=== PATIENT | female | born 1955 | race Caucasian/White ===

== ENCOUNTER → 2016-08-06 | Outpatient (CLI) | payer MEDICARE ==
[~2016-08-06] MED LIST: ALBU6.7H IH; FAMO-119 PO; FLUT1DIS3 IH; HYDR-3754 PO; HYDR-3811 PO; LEVO88TA4 PO; LRT10T PO; MESA250C PO; PRM25T PO; TRM50T PO; [UNRECOGNIZED DRUG - CODE] PO
[2016-08-06 15:02] LABS: MEAN CORPUSCULAR HGB CONC 32.5 g/dL (31.0-37.0); MEAN PLATELET VOLUME 9.9 FL (6.0-9.5); PLATELET COUNT 246 10^3uL (150-450); WHITE BLOOD COUNT 2.07 10^3uL (4.0-11.0)
[2016-08-06 15:09] LABS: MEAN CORPUSCULAR HEMOGLOBIN 32.8 PG (26.0-34.0); MEAN CORPUSCULAR VOLUME 101 FL (80-100)
[2016-08-06 15:20] LABS: ANISOCYTOSIS SLIGHT; BAND NEUTROPHILS % 3 % (0-6); EOSINOPHILS % 0 % (0-4); LYMPHOCYTES # 0.4 #; MONOCYTES # 0.2 #; MONOCYTES % 9 % (3-11); RBC MORPH SEE REFERENCE (NORMAL); SEGMENTED NEUTROPHILS % 70 % (51-67); TOTAL CELLS COUNTED 100
== END ==
LOC: LAB 14:45
PROVIDERS: ATTEND Internal Medicine Gastroenterology
DX: D64.9 Anemia, unspecified (principal)
CPT/HCPCS: 36415; 85025

== ENCOUNTER 2016-11-05 11:25 | Emergency (ER) | payer MEDICARE ==
[~2016-11-05] VITALS: Ht 160 cm; Wt 51.2 kg
--- OUTSIDE RECORDS SUMMARY | 2016-11-05 11:29 | XMS REPORT | Summary of Care ---
Author Author Emory Craft M.D. Organization Unknown Address Unknown Phone Unavailable Care Team Providers Care Diesel Motor Mechanic Name Role Phone Emory Craft M.D. 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, E04.1) Status: Active Glossitis (529.0, K14.0) Status: Active Solitary thyroid nodule (241.0, E04.1) Status: Active Esophageal reflux (530.81, K21.9) Status: Active Dysphagia (787.20, R13.10) Status: Active Current Every Day Smoker Status: Active COPD, moderate (496, J44.9) Status: Active Anemia (285.9, D64.9) Status: Active Arthritis (716.90, M19.90) Status: Active Asthma (493.90, J45.909) Status: Active GERD with stricture (530.81, K21.9) Status: Active Arthritis or polyarthritis, 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, 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 Thrush (112.0, B37.0) Status: Active ADHD (attention deficit hyperactivity disorder) (314.01, F90.9) Status: Active Back pain (724.5, M54.9) Status: Active COPD (chronic obstructive pulmonary disease) (496, J44.9) Status: Active Cyst of left breast (610.0, N60.02) Status: Active Cyst of right breast (610.0, N60.01) Status: Active Environmental allergies (V15.09, Z91.09) Status: Active Perirectal skin irritation (569.49, K62.89) Status: Active Casey's 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.2, E06.3) Status: Active Left shoulder pain (719.41, M25.512) Status: Active COPD exacerbation (491.21, J44.1) Status: Active Crohn's disease (555.9, K50.90) Status: Active Chest cold (519.8, J22) Status: Active URI (upper respiratory infection) (465.9, J06.9) Status: Active Medications Name Dates Details Pepcid AC 10 MG Oral Tablet Refills: 0 Start 09-Dec-2012 Active TraMADol HCl - 50 MG Oral Tablet TAKE 1 TO 2 TABLETS BY MOUTH 4 TIMES DAILY NEEDED Quantity: 240 Refills: 3 Luana M.D., Emory Start 09-Dec-2012 Active Advair Diskus 100-50 MCG/DOSE Inhalation Aerosol Powder Breath Activated Refills: 0 Start 09-Dec-2012 Active Nystatin 252763 UNIT/ML Mouth/Throat Suspension SWISH AND SWALLOW 5ML 4 TIMES DAILY. Quantity: 100 Refills: 0 Forrest M.D., Emory Start Active Hydrocodone-Acetaminophen 10-325 MG Oral Tablet TAKE 1 TO 2 TABLETS EVERY 4 TO 6 HOURS NEEDED FOR PAIN. Quantity: 50 Refills: 0 Forrest M.D., Emory Start Active Levothyroxine Sodium 88 MCG Oral Tablet TAKE 1 TABLET DAILY. Quantity: 30 Refills: 11 Forrest M.D., Emory Start 20-Nov-2015 Active Tudorza Pressair 400 MCG/ACT Inhalation Aerosol Powder Breath Activated 1 inhalation bid Quantity: 1 Refills: 5 Forrest M.D., Emory Start 14-Dec-2015 Active Montelukast Sodium 10 MG Oral Tablet TAKE 1 TABLET DAILY DIRECTED. Quantity: 30 Refills: 11 Forrest M.D., Emory Start 14-Dec-2015 Active Albuterol Sulfate (2.5 MG/3ML) 0.083% Inhalation Nebulization Solution USE DIRECTED. Quantity: 0 Refills: 0 Forrest M.D., Emory Start 14-Dec-2015 Admin Requested Levocetirizine Dihydrochloride 5 MG Oral Tablet TAKE 1 TABLET DAILY IN THE EVENING. Quantity: 30 Refills: 11 Forrest M.D., Emory Start Active Albuterol Sulfate (2.5 MG/3ML) 0.083% Inhalation Nebulization Solution USE 1 UNIT DOSE IN NEBULIZER EVERY 4 HOURS NEEDED. Quantity: 1 Refills: 4 Luana M.D., Emory Start Active 3 ML Plas Cont (60 Plas Conts) Ventolin HFA 108 (90 Base) MCG/ACT Inhalation Aerosol Solution INHALE 1 TO 2 PUFFS EVERY 4 TO 6 HOURS NEEDED. Quantity: 18 Refills: 3 Forrest M.D., Emory Start Active ProAir HFA 108 (90 Base) MCG/ACT Inhalation Aerosol Solution INHALE 2 PUFFS EVERY 4 HOURS NEEDED FOR COUGH AND WHEEZE. Quantity: 1 Refills: 6 Luana M.D., Emory Start Active 8.5 GM Inhaler Promethazine HCl - 25 MG Oral Tablet Take 1 tab po q 4 hr PRN Quantity: 20 Refills: 3 Forrest M.D., Emory Start 26-Feb-2016 Active LevoFLOXacin 500 MG Oral Tablet TAKE 1 TABLET DAILY UNTIL FINISHED. Quantity: 10 Refills: 0 Forrest M.D., Emory Start 27-Feb-2016 Active Zinc Oxide 20 % External Ointment USE DIRECTED. Quantity: 60 Refills: 6 Forrest M.D., Emory Start 25-Mar-2016 Active Fluconazole 100 MG Oral Tablet TAKE 2 TABLETS ON DAY 1 THEN TAKE 1 TABLET A DAY FOR 4 DAYS. 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, 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 COPD, moderate (496, J44.9) Status: Active Crohn's disease (555.9, K50.90) Status: Active GERD with stricture (530.81, K21.9) Status: Active Casey's 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.2, E06.3) Status: Active Procedures Procedure Dates Details History of Tonsillectomy History of Gallbladder Surgery History of Appendectomy History of Surgical Excision Of Ectopic Unspecified Location History of Thyroid Surgery Completed: Procedures not documented Immunization Name Dates Details Influenza Lot #: [id number] on: 14-May-2016 Family History Name Dates Details Family history of Cancer Comments: Family History Status: Active Name Dates Details No pertinent family history Status: Active Name Dates Details Family history of Monoallelic deletion of STK11 gene (V84.89, Z15.89) Status: Active Social History Name Dates Details - Status: Name Dates Details Current every day smoker Vital Signs Date Test Result Details 15-Jul-2016 16:31 BP Systolic 124 mm[Hg] Status: Comments: Location: LUE; Position: Sitting BP Diastolic 70 mm[Hg] Status: Comments: Location: LUE; Position: Sitting Temperature 98.8 f Status: Comments: Method: Tympanic Heart Rate 88 /min Status: Comments: Location: ; Weight 111 lb Status: Physical Findings 96 Status: Comments: O2 Saturation Body Mass Index Calculated 19.05 kg/m2 Status: Body Surface Area Calculated 1.52 m2 Status: Results Date Description Value Details 15-Jul-2016 17:24 INFLUENZA A/B ANTIGEN 5320 Comments: *Negative results do not exclude Influenza viral infection and could be confirmed with Influenza molecular assays. Physician order would be required.*Testing performed by [facility], [address] [place] [id number] Phone: Testing performed by [facility], [facility] [address] [place] [id number] *INFLUENZA A/B ANTIGEN Negative Range: Negative Plan of Care Name Dates Details Planned Observations Planned Goals not documented Interventions Provided Medication ChangesAdvair Diskus 250-50 MCG/DOSE Inhalation Aerosol Powder Breath Activated - Renew Instructions Name Dates Details Instructions not documented Encounters Appointment; Emory Craft M.D. Encounter Diagnosis: Problem not documented On 15-Jul-2016 16:30 Appointment; Emory Craft M.D. Encounter Diagnosis: Problem not documented On 19-Jun-2016 10:30 Appointment; Emroy Craft M.D. Encounter Diagnosis: Problem not documented On 14-May-2016 14:45 Appointment; Emory Craft M.D. Encounter Diagnosis: Problem not documented On 22-Apr-2016 10:30 Appointment; Emory Craft M.D. Encounter Diagnosis: Problem not documented On 25-Mar-2016 15:15 Appointment; Emory Craft M.D. Encounter Diagnosis: Problem not documented On 13-Mar-2016 10:00 Appointment; Cameron Craft M.D. Encounter Diagnosis: Problem not documented On 27-Feb-2016 11:30 Appointment; Emory Craft M.D. Encounter Diagnosis: Problem not documented On 08:00 Appointment; Emory Craft M.D. Encounter Diagnosis: Problem not documented On 14-Dec-2015 08:30 Appointment; Emory Craft M.D. Encounter Diagnosis: Problem not documented On 13-Nov-2015 13:30
--- OUTSIDE RECORDS SUMMARY | 2016-11-05 11:29 | XMS REPORT ---
Author Author Genaro Key Organization Unknown Address [address], [place] [id number] Phone Care Team Providers Care Transition Assistant Name Role Phone [facility] [facility] Unavailable Unavailable Reason for Referral No Reason for Referral was given. History of Present Illness No HPI available. 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); (Active) Visit For: Postsurgical Exam (V67.00); (Active) Medication Claritin 10 MG Oral Capsule; Start Date: 12/09/2012 (Active)Pepcid AC 10 MG Oral Tablet; Start Date: 12/09/2012 (Active)TraMADol HCl 50 MG Oral Tablet; Start Date: 12/09/2012 (Active)Advair Diskus 100-50 MCG/DOSE Inhalation Aerosol Powder Breath Activated; Start Date: 12/09/2012 (Active)Proventil HFA 108 (90 Base) MCG/ACT Inhalation Aerosol Solution; Start Date: 12/09/2012 (Active) Nystatin 064079 UNIT/ML Mouth/Throat Suspension; Start Date: 12/31/2012 (Active) Hydrocodone-Acetaminophen 5-325 MG Oral Tablet; Take 1 to 2 po every 4 hours prn pain; Start Date: 01/13/2013 (Active)Hydrocodone-Acetaminophen 7.5-325 MG Oral Tablet; 1-2 PO q 4 hrs prn pain; Start Date: 01/05/2013; End Date: 2012 (Complete) Allergies and Adverse Reactions Sulfa Drugs (Active)Penicillins (Active)Tetracyclines (Active) Past Medical History No Significant Medical History Procedures Procedure Procedure Date Date Completed Status Tonsillectomy - - Active Gallbladder Surgery - - Active Appendectomy - - Active Surgical Excision Of Ectopic Unspecified Location - - Active Thyroid Surgery 01/05/2013 - Active Family History Family history of Cancer (Active) Social History Current Every Day Smoker (Active) Caffeine Use (Active) Advance Directives No Advance Directives available. Encounters Appointment 01/13/2013
[2016-11-05] MEDS ORDERED: OMEP20TA33 PO (11:38)
[2016-11-05] MEDS ORDERED: AZTH50T PO (11:44)
[2016-11-05] MEDS ORDERED: MNTL10T PO (11:44)
[2016-11-05] MEDS ORDERED: HYDROmorphone 1 MG/ML (DILAUDID) SYRINGE IM ONE (11:45)
[2016-11-05] MEDS ORDERED: PROMETHAZINE 25 MG/ML (PHENERGAN) 1 ML VIAL IM ONE (11:45)
[2016-11-05] MEDS ORDERED: LEVO5TAB18 PO (11:46)
--- NOTE | 2016-11-05 13:17 | Diagnostic Imaging Report ---
FOOT, RIGHT, 3 VIEW COMPARISON: None available. INDICATION: Lateral foot pain after fall. TECHNIQUE: Non-weight bearing AP, oblique, and lateral views of the foot. FINDINGS: No fracture or traumatic malalignment. No evidence of metatarsal stress fracture. No evidence of metatarsal stress fracture IMPRESSION: No acute fracture or traumatic malalignment. Dictated by: Dictated on workstation # [id number]
[2016-11-05] MEDS ORDERED: HYDR-3702 PO (13:19)
[2016-11-05 13:32] VITALS: BP 106/55
== END 2016-11-05 13:20 | disposition home or self-care (01) ==
LOC: ED 11:26
DX: M79.671 Pain in right foot (principal)
CPT/HCPCS: 73630; 96372; 99283; J1170; J2550

== ENCOUNTER → 2016-12-13 | Outpatient (CLI) | payer MEDICARE ==
[~2016-12-13] MED LIST changes: +AZTH50T PO; +HYDR-3702 PO; +LEVO5TAB28 PO; +MNTL10T PO; +OMEP20TA33 PO
[2016-12-13 13:33] LABS: MEAN CORPUSCULAR HGB CONC 33.5 g/dL (31.0-37.0); MEAN CORPUSCULAR VOLUME 96 FL (80-100); MEAN PLATELET VOLUME 9.5 FL (6.0-9.5); PLATELET COUNT 260 10^3uL (150-450); WHITE BLOOD COUNT 2.03 10^3uL (4.0-11.0)
[2016-12-13 13:44] LABS: ALBUMIN 4.3 g/dL (3.4-5.0); ANION GAP 12.5 MEQ/L (3-15); CALCULATED IONIZED CALCIUM 3.5 mg/dL (3.8-4.6); TOTAL PROTEIN 8.4 g/dL (6.4-8.5)
[2016-12-13 14:23] LABS: BAND NEUTROPHILS % 1 % (0-6); EOSINOPHILS % 1 % (0-4); LYMPHOCYTES # 0.7 #; MONOCYTES # 0.2 #; MONOCYTES % 10 % (3-11); RBC MORPH NORMAL (NORMAL); SEGMENTED NEUTROPHILS % 53 % (51-67); TOTAL CELLS COUNTED 100
== END ==
LOC: LAB 13:16
PROVIDERS: ATTEND Internal Medicine Gastroenterology
DX: K50.00 Crohn's disease of small intestine without complications (principal); Z79.899 Other long term (current) drug therapy
CPT/HCPCS: 36415; 80053; 85025